=== PATIENT | male | born 1945 | race Caucasian/White ===

== ENCOUNTER 2017-08-20 10:33 | Inpatient (IN) ==
--- OUTSIDE RECORDS SUMMARY | 2017-08-20 10:42 | External Medical Summary | Referral Summary ---
:1945 Author Organization [facility] Address [address] [place] [address] [place] [address] Care Team Providers Name Role Phone Yuliet Zhang Primary Care Physician Encounter VC Date(s): 11/01/16 - 11/01/16 [facility] [place] [place] [address] Discharge Diagnosis: LLQ abdominal pain Discharge Diagnosis: Irritable bowel syndrome Discharge Disposition: 01-Home or Self Care Attending Physician: Yuliet Zhang MD Admitting Physician: Yuliet Zhang MD Vital Signs Most recent to oldest [Reference Range]: 1 Temperature Tympanic [36.6-38.1 degC] 36.3 degC *LOW* (11/01/16 9:22 AM) Peripheral Pulse Rate [60-100 bpm] 76 bpm (11/01/16 9:22 AM) Respiratory Rate [14-20 br/min] 16 br/min (11/01/16 9:22 AM) Blood Pressure [90-140/60-90 mmHg] 122/66 mmHg (11/01/16 9:22 AM) Problem List Condition Effective Dates Status Health Status Informant At risk for falls(Confirmed)1 Active Depression(Confirmed) Active Gastroesophageal reflux disease Active (disorder)(Confirmed) GERD (gastroesophageal reflux Active disease)(Confirmed) History of prostate cancer(Confirmed) Active Hypercholesteremia(Confirmed) Active Obesity(Confirmed) Active patient Obstructive sleep apnea(Confirmed) Active Pure hypercholesterolemia Active (disorder)(Confirmed) 1This problem was added by Discern Expert. Allergies, Adverse Reactions, Alerts No Known Medication Allergies Medications aspirin 81 mg, Oral, Daily, 0 Refill(s) Start Date: 01/24/16 Status: Orderedfamotidine 20 mg oral tablet See Instructions, TAKE 1 TABLET TWICE DAILY, # 180 tabs, 2 Refill(s), eRx: [facility] Start Date: 06/29/16 Status: OrderedFlonase 50 mcg/inh nasal spray 1 sprays, Nasal, BID, as needed for allergy symptoms, 0 Refill(s) Start Date: 01/27/16 Status: Orderedmultivitamin Oral, Daily, 0 Refill(s) Start Date: 01/24/16 Status: Orderedsimvastatin 20 mg oral tablet 10 mg, Oral, Bedtime (once a day), [employer] [phone], # 90 tabs, 1 Refill(s) , Pharmacy: [facility] #[id number], 10 mg Oral Bedtime (once a day),Instr: [employer] [phone] Start Date: 02/23/16 Status: Ordered Immunizations Given and Recorded Vaccine Date Status Refusal Reason pneumococcal 23-polyvalent vaccine 11/22/15 Given pneumococcal 13-valent conjugate vaccine 12/21/14 Given tetanus/diphth/pertuss (Tdap) adult/adol 12/21/14 Given influenza virus vaccine, inactivated 11/24/14 Recorded Procedures Procedure Date Related Diagnosis Body Site Radical prostatectomy1 01/2010 Colonoscopy2 2007 Release of trigger finger3 1Done for prostate cancer. Dr. Chakrabortyh2No polyps and he did diverticuli present. it was done [id number] it was 2011 Social History Social History Type Response Smoking Status Former smoker entered on: 01/24/16 Assessment and Plan Extracted from: Title: Office Visit Note Author: Yulite Zhang MD Date: 11/01/16 1.LLQ abdominal pain I think this was more likely irritable bowel. I encouraged him to continue to keep his fiber intake up. MiraLAX as needed. He's due for colonoscopy next year. If his pain worsens or if she starts running feverhe will let us now. 2.Irritable bowel syndrome Plan as listed above. Increase fluid intake is encouraged as well.
--- OUTSIDE RECORDS SUMMARY | 2017-08-20 10:42 | External Medical Summary | Referral Summary ---
:1945 Author Organization [facility], [facility] Address [address] [place] [address] [place] [address] Care Team Providers Name Role Phone Shahriar Zhang Primary Care Physician Encounter VC Date(s): 07/26/16 - 07/26/16 [facility] [place] [place] [phone] [place] Discharge Diagnosis: Abrasion of right knee Discharge Disposition: 01-Home or Self Care Attending Physician: Shahriar Zhang MD Admitting Physician: Shahriar Zhang MD Vital Signs Most recent to oldest [Reference Range]: 1 Temperature Tympanic [36.6-38.1 degC] 36.6 degC (07/26/16 11:08 AM) Peripheral Pulse Rate [60-100 bpm] 76 bpm (07/26/16 11:08 AM) Blood Pressure [90-140/60-90 mmHg] 122/64 mmHg (07/26/16 11:08 AM) Problem List Condition Effective Dates Status [...] DAILY, # 180 tabs, 2 Refill(s), eRx: [facility] Start Date: 06/29/16 Status: OrderedFlonase 50 mcg/inh nasal spray 1 sprays, Nasal, BID, as needed for allergy symptoms, 0 Refill(s) Start Date: 01/27/16 Status: Orderedmultivitamin Oral, Daily, 0 Refill(s) Start Date: 01/24/16 Status: Orderedsimvastatin 20 mg oral tablet 10 mg, Oral, Bedtime (once a day), [employer] [phone], # 90 tabs, 1 Refill(s) , Pharmacy: [facility] #[id number], 10 mg Oral Bedtime (once a day),Instr: [employer] [phone] Start Date: 02/23/16 Status: Ordered Results No data available for this section Immunizations Given and Recorded Vaccine Date Status Refusal Reason tetanus/diphth/pertuss (Tdap) adult/adol 12/21/14 Given influenza virus vaccine, inactivated 11/24/14 Recorded pneumococcal 13-valent conjugate vaccine 12/21/14 Given pneumococcal 23-polyvalent vaccine 11/22/15 Given Procedures Procedure Date Related Diagnosis Body Site Radical prostatectomy1 01/2010 Colonoscopy2 2007 Release of trigger finger3 1Done for prostate cancer. Dr. Chakrabortyh2No polyps and he did diverticuli present. it was done [id number] it was 2011 Social History Social History Type Response Smoking Status Former smoker Assessment and Plan Extracted from: Title: Office Visit Note Author: Shahriar Zhang MD Date: 07/26/16 Assessment/Plan 1.Abrasion of right knee Reassurance at this point. I think the swelling is just due to the tissue trauma. There is no signs of infection that I could appreciate. I encouraged him to continue to care for it in the wa y he has with some Neosporin and sterile dressings. He may leave it open occasionally. If he has ongoing problems or further concernsor if he notices increased rednesswarmthor pain
--- OUTSIDE RECORDS SUMMARY | 2017-08-20 10:42 | External Medical Summary | Referral Summary ---
:1945 Author Organization [facility] Address [address] [place] [address] Care Team Providers Name Role Phone Shahriar Zhang Primary Care Physician Encounter VC Date(s): 07/30/17 - 07/31/17 [facility] [address] [place] [address]- [place] Discharge Disposition: 01-Home or Self Care Attending Physician: León Marshall MD Admitting Physician: León Marshall MD Vital Signs Most recent to oldest [Reference Range]: 1 Temperature Oral [35.8-37.3 degC] 36.6 degC (07/31/17 12:30 AM) Temperature Skin [36-37 degC] 36.4 degC (07/31/17 12:01 AM) Peripheral Pulse Rate [60-100 bpm] 90 bpm (07/31/17 1:15 AM) Heart Rate Monitored [60-100 bpm] 73 bpm (07/31/17 12:15 AM) Respiratory Rate [14-20 br/min] 16 br/min (07/31/17 1:15 AM) Blood Pressure [90-140/60-90 mmHg] 117/71 mmHg (07/31/17 1:15 AM) Mean Arterial Pressure, Cuff 83 mmHg (07/31/17 12:15 AM) SpO2 96 % (07/31/17 1:15 AM) Problem List Condition Effective Dates Status Health Status Informant Acute pain(Confirmed) Active At risk for falls(Confirmed)1 Active Depression(Confirmed) Active Gastroesophageal reflux disease Active (disorder)(Confirmed) GERD (gastroesophageal reflux Active disease)(Confirmed) History of prostate cancer(Confirmed) Active Hypercholesteremia(Confirmed) Active Obesity(Confirmed) Active patient Obstructive sleep apnea(Confirmed) Active Pure hypercholesterolemia Active (disorder)(Confirmed) 1This problem was added by Discern Expert. Allergies, Adverse Reactions, Alerts No Known Medication Allergies Medications aspirin 81 mg, Oral, Daily, 0 Refill(s) Start Date: 01/24/16 Status: OrderedCommunication not a verified med list, pharmacy to follow up, 0 Refill(s) Start Date: 07/30/17 Status: Orderedfamotidine 20 mg oral tablet See Instructions, TAKE 1 TABLET TWICE DAILY, # 180 tabs, 2 Refill(s), eRx: [facility] Start Date: 06/29/16 Status: OrderedFlonase 50 mcg/inh nasal spray 1 sprays, Nasal, BID, as needed for allergy symptoms, 0 Refill(s) Start Date: 01/27/16 Status: Orderedmultivitamin Oral, Daily, 0 Refill(s) Start Date: 01/24/16 Status: Orderedsimvastatin 20 mg oral tablet 10 mg, Oral, Bedtime (once a day), [facility] [phone], # 90 tabs, 1 Refill(s) , Pharmacy: [facility] #[id number], 10 mg Oral Bedtime (once a day),Instr: [employer] [phone] Start Date: 02/23/16 Status: Ordered Results Chemistry Most recent to oldest [Reference Range]: 1 Sodium Venous [136-144 mEq/L] 137 mEq/L (07/30/17 9:30 PM) Potassium Venous [3.6-5.1 mEq/L] 5.1 mEq/L 1 (07/30/17 9:30 PM) Calcium Ionized Venous [1.19-1.41 mmol/L] 1.04 mmol/L *LOW* (07/30/17 9:30 PM) Total CO2 Venous [25-29 mEq/L] 20 mEq/L *LOW* (07/30/17 9:30 PM) HGB Venous NPT [14.0-18.0 gm/dL] 16.7 gm/dL (07/30/17 9:30 PM) HCT Venous [42.0-52.0 %] 49.0 % (07/30/17 9:30 PM) Glucose Venous [70-100 mg/dL] 227 mg/dL *HI* (07/30/17 9:30 PM) BUN Venous [4-20] 24 *HI* (07/30/17 9:30 PM) Creatinine Venous [0.7-1.2 mg/dL] 0.9 mg/dL (07/30/17 9:30 PM) Venous CL [99-109 mEq/L] 105 mEq/L (07/30/17 9:30 PM) Anion Gap, Adam [3-20 mEq/L] 12 mEq/L (07/30/17 9:30 PM) 1Result Comment: This test was performed on a whole blood specimen. The presence or absence of hemolysis cannot be assessed. Hemolysis can falsely elevate potassium levels. Normals are for venous specimens only.Urinalysis Most recent to oldest [Reference Range]: 1 UA Color - 1 (07/30/17 9:22 PM) UA Appear Turbid *ABN* (07/30/17 9:22 PM) UA pH [5.0-8.0] 6.0 (07/30/17 9:22 PM) UA Leuk Est [Negative] Negative (07/30/17 9:22 PM) UA Nitrite [Negative] Negative (07/30/17 9:22 PM) UA Protein [Negative] Pos 2+ *ABN* (07/30/17 9:22 PM) UA Glucose [Negative] Pos 3+ *ABN* (07/30/17 9:22 PM) UA Ketones [Negative] Pos 1+ *ABN* (07/30/17 9:22 PM) UA Urobilinogen [<1.0] Negative (07/30/17 9:22 PM) UA Bili [Negative] Negative (07/30/17 9:22 PM) UA Blood [Negative] Pos 3+ *ABN* (07/30/17 9:22 PM) UA Spec Grav [1.003-1.030] 1.020 (07/30/17 9:22 PM) Type Clean Catch (07/30/17 9:22 PM) UA WBC [0-4] 2-5 (07/30/17 9:22 PM) UA RBC [0-2 /HPF] >50 /HPF *ABN* (07/30/17 9:22 PM) Epithelial Cells 0-2 (07/30/17 9:22 PM) UA Bacteria Occasional *ABN* (07/30/17 9:22 PM) UA Mucous Present (07/30/17 9:22 PM) 1Result Comment: Braxton Immunizations Given and Recorded Vaccine Date Status Refusal Reason influenza virus vaccine, inactivated1 11/16/16 Recorded influenza virus vaccine, inactivated 11/24/14 Recorded pneumococcal 23-polyvalent vaccine 11/22/15 Given pneumococcal 13-valent conjugate vaccine 12/21/14 Given tetanus/diphth/pertuss (Tdap) adult/adol 12/21/14 Given 1Result Comment: [11/21/2016] fluzone [facility] Procedures Procedure Date Related Diagnosis Body Site Status Cystoscopy Direct Visual Internal 07/30/17 Completed Urethrotomy1 Radical prostatectomy2 01/2010 Completed Colonoscopy3 2007 Completed Release of trigger finger4 Completed 1auto-populated from documented surgical [id number] for prostate cancer. Dr. Chakrabortyh3No polyps and he did diverticuli present. it was done [id number] it was 2011 Social History Social History Type Response Smoking Status Former smoker entered on: 01/24/16
--- OUTSIDE RECORDS SUMMARY | 2017-08-20 10:42 | External Medical Summary | Referral Summary ---
:1945 Author Organization [facility] [place] [place] [address] Care Team Providers Name Role Phone Yuliet Zhang Primary Care Physician Encounter VC Date(s): 04/28/16 - 04/28/16 [facility] [place] [place] [phone] [place] Discharge Diagnosis: Heart palpitations Discharge Diagnosis: Anxiety Discharge Diagnosis: Hypercholesteremia Discharge Diagnosis: Low back strain Discharge Disposition: 01-Home or Self Care Attending Physician: Yuliet Zhang MD Admitting Physician: Yuliet Zhang MD Vital Signs Most recent to oldest [Reference Range]: 1 Temperature Tympanic [36.6-38.1 degC] 36.4 degC *LOW* (04/28/16 8:03 AM) Peripheral Pulse Rate [60-100 bpm] 67 bpm (04/28/16 8:03 AM) Blood Pressure [90-140/60-90 mmHg] 124/70 mmHg (04/28/16 8:03 AM) SpO2 99 % (04/28/16 8:03 AM) Problem List Condition Effective Dates Status [...] 01/24/16 Status: Orderedfamotidine 20 mg oral tablet 20 mg, Oral, BID, fax to [employer] [phone], # 180 tabs, 1 Refill(s), Pharmacy : [facility] #[id number], 20 mg Oral BID,x90 days,Instr:fax to [facility] [phone] Start Date: 02/23/16 Stop Date: 08/21/16 Status: OrderedFlonase 50 mcg/inh nasal spray 1 sprays, Nasal, BID, as needed for allergy symptoms, 0 Refill(s) Start Date: 01/27/16 Status: Orderedmultivitamin Oral, Daily, 0 Refill(s) Start Date: 01/24/16 Status: Orderedsimvastatin 20 mg oral tablet 10 mg, Oral, Bedtime (once a day), [facility] [phone], # 90 tabs, 1 Refill(s) , Pharmacy: [facility] #[id number], 10 mg Oral Bedtime (once a day),Instr: [facility] [phone] Start Date: 02/23/16 Status: Ordered Results No [...] he did diverticuli present. it was done [id number] it was 2011 Social History Social History Type Response Smoking Status Former smoker Assessment and Plan Extracted from: Title: Office Visit Note Author: Yuliet Zhang MD Date: 04/28/16 Assessment/Plan 1.Heart palpitations Think he is likely having somePVCs that he is feeling better creating some anxiety and causing his blood pressure torun higher. I think it's reasonable to consider having cardiology consultat ion perhaps a treadmillstresstest doneto give him some reassurance that there is no other underlyingdifficulties and to monitor his rhythm. We did discuss using beta blockers to suppress PVCs for the time being we will notuse medicationat this time. 2.Anxiety We talked about how the PVCs can provoke anxiety and perhaps sometimes anxiety can cause the PVCs to be more prominent. I've recommendedcardiology evaluation and we can discuss whether we would want to consider treating the anxietyas well. 3.Hypercholesteremia Chronic and stable and under good control no change in current treatment. 4.Low back strain This seems to be improvingof a change in treatment he may continue to use ibuprofen and see the chiropractor. I encouraged him to stay active. If the symptoms worsenor he is having further problems he'll let us know.
[2017-08-20 10:46] VITALS: BMI 26.8
[2017-08-20] MEDS ORDERED: PROPOFOL 20 ML ONE (10:52)
[2017-08-20] MEDS ORDERED: ROCURONIUM 50 MG/5 ML INJECTION IVP ONE (10:52)
[2017-08-20] MEDS: LR 1,000 ML IV SCH ×4 (11:20→17:16)
--- NOTE | 2017-08-20 12:01 | Anesthesia Preoperative Report ---
Anesthesia Preoperative Record - Date and Time Date: 08/20/17 Preoperative Diagnosis: Rt Hemicolectomy Proposed Procedure: right hemicolectomy NPO Since Date: 08/20/17 NPO Since Time: 05:00 Allergies/Adverse Reactions: Allergies Allergy/AdvReac Type Severity Reaction Status Date / Time No Known Allergies Allergy Verified 08/20/17 10:54 - Vital Signs Vital Signs: Temperature 98.0 F 08/20/17 10:45 Pulse Rate 77 08/20/17 11:24 Respiratory Rate 16 08/20/17 10:45 Blood Pressure 135/70 08/20/17 10:45 Pulse Oximetry 97 08/20/17 10:45 Height and Weight: Height 1.79 m Weight 86.1 kg Body Mass Index 26.8 - Medications Inpatient Medications: Current Medications Heparin Sodium (Porcine) (Heparin Sq) 5,000 units SQ O ONE Stop: 08/20/17 14:38 Last Admin: 08/20/17 11:17 Dose: 5,000 units Ertapenem 1 g/ Sodium Chloride 100 mls @ 200 mls/hr IV PREOP ONE Stop: 08/20/17 15:06 Lactated Ringer's (Lactated Ringers) 1,000 mls @ 50 mls/hr IV .Q20H DORIE Last Admin: 08/20/17 11:20 Dose: 50 mls/hr Lidocaine HCl (Xylocaine-Mpf 1% Vial) 2 mg ID O ONE Stop: 08/20/17 14:38 Last Admin: 08/20/17 11:23 Dose: Not Given Sodium Chloride (Iv Flush) 10 ml IV PRN PRN PRN Reason: Flushing Home Medications: Home Medications Medication Instructions Recorded Confirmed Type Ibuprofen [Motrin] 600 mg PO Q6H PRN #60 tab 03/01/17 08/20/17 Rx Aspirin [Aspirin EC] 81 mg PO DAILY 06/27/17 08/17/17 History Famotidine [Pepcid] 1 tab PO BID 06/27/17 08/20/17 History Multivitamin [Multivitamins] 1 tab PO DAILY 06/27/17 08/20/17 History Simvastatin [Zocor] 10 mg PO HS 06/27/17 08/20/17 History erythromycin 250 mg See Label Instructions PO TID #12 08/06/17 08/20/17 Rx capsule,delayed release cap Neomycin Sulfate 1,000 mg PO TID 08/20/17 08/20/17 History Is Patient on Beta Mackenzie?: No - Medical History Respiratory: Reports: Sleep Apnea DENIES: Asthma, Bronchitis, Chronic Obstructive Pulmonary Disease (COPD), Dyspnea, Orthopnea, Pulmonary Embolism, Pneumonia, Upper Respiratory Infection, Pulmonary Edema, Tuberculosis, Other Cardiovascular: Reports: Other (palpitations) DENIES: Abnormal EKG, Angina, Arrhythmia, Congestive Heart Failure, Coronary Artery Disease, Heart Murmur, Hypertension, Hypotension, Myocardial Infarction, Rheumatic Fever, Valvular Heart Disease Gastrointestional: Reports: Gastroesophageal Reflux Disease (well controlled), Hiatal Hernia, Other (diverticulitis, tubulovillous ademoma) DENIES: Obstructive Bowel, Hepatitis, Cirrhosis, Gastrointestinal Bleeding, Ulcer, Morbid Obesity Neuro/Musculoskeletal: Reports: Depression Denies: Back Problems, Cerebrovascular Accident, Headaches, Loss of Consciousness, Muscle Weakness, Neuromuscular Disorder, Paralysis, Paresthesia, Syncope, Seizures, Other Renal/Endocrine: DENIES: Diabetes Mellitus Type 1, Diabetes Mellitus Type 2, Renal Failure, Dialysis, Thyroid Disease, Weight Loss, Weight Gain, Other Other History: Reports: Cancer (prostate) DENIES: Anesthesia Reactions - Surgical History HEENT Surgeries: Reports: Eye Surgery (retina repair; TORN RETINA), Tonsillectomy Respiratory Surgery/Treatments: Reports: CPAP Use GI Surgery/Treatments: Reports: Hernia Repair (inguinal-left), Colonoscopy Surgery/Treatment: REPORT: Prostatectomy (2009), Other (HAS A "FALSE PASSAGE IN URETHRA; HAD UROLOGIST PLACE CATHETER 07/30/17) DENIES: Dialysis Musculoskeletal Surgery/Tx: Reports: Other (trigger finger release-left) Hx Family Anesthesia Reaction: No - Social History Smoking Status: Former smoker Hx Chewing Tobacco Use: No Second Hand Exposure: No Substance Use Type: does not use Alcohol Intake: current Alcohol Intake Frequency: a few times a week - Pertinent Findings Laboratory: CBC and BMP 08/20/17 11:01 08/20/17 11:01 BMP 08/20/17 11:01 Sodium 147 H Potassium 3.9 Chloride 110 H Carbon Dioxide 22 BUN 16.0 Creatinine 1.0 Glucose 91 Calcium 9.3 Liver Function 08/20/17 Range/Units 11:01 Total Bilirubin 1.40 H (0.20-1.30) MG/DL AST 30 (17-59) U/L ALT 27 (1-50) U/L Alkaline Phosphatase 80 (38-126) U/L Albumin 4.7 (3.5-5.0) g/dL EKG: Sinus Rhythm - Physical Exam Respiratory Exam: Present: lungs clear Cardiovascular Exam: Present: regular rate and rhythm, no murmur - Airway Assessment Mallampati Score: II TMD: 3 Fingerbreadths Neck Extension: good Teeth: chipped teeth/crowns Overall Assessment: no airway concerns - ASA ASA Score: 3 - Plan Anesthesia: General Inhalation Gases - Discussion Discussion: Discussed risks/options/alternatives of anesthesia and questions answered. Patient consents. Nursing pain assessment noted. Present for Discussion: family member Attestation Statement: Prior to the delivery of any anesthetic medication, I examined the patient, developed the plan, obtained the patient's consent and discussed the risk and benefits of the procedure with the patient/guardian. - Additional Information Seen by Anesthesia: Yes
[2017-08-20] MEDS ORDERED: FentaNYL 250 MCG/5 ML INJECTION ONE ×2 (12:13→14:45)
[2017-08-20] MEDS ORDERED: LACRI-LUBE EYE OINT 3.5gm ONE (12:15)
[2017-08-20] MEDS ORDERED: SALINE FLUSH 10ml SYRINGE ONE ×3 (13:07→17:10)
[2017-08-20] MEDS ORDERED: VECURONIUM 10 MG/10 ML VIAL IV ONE ×2 (13:07→14:40)
[2017-08-20] MEDS ORDERED: GLYCOPYRROLATE 0.4 MG/2 ML INJECTION ONE (13:12)
[2017-08-20] MEDS ORDERED: BUPIVACAINE 0.25%/EPI 1:200,000 30ml SDV ID ONE (13:30)
[2017-08-20] MEDS ORDERED: IOHEXOL 300mg/ml 50ml INJECTION IV ONE (14:00)
[2017-08-20] MEDS ORDERED: SALINE FLUSH 10ml SYRINGE IV PRN (14:37)
[2017-08-20] MEDS ORDERED: ERTAPENEM 1 G in NS 100 ML IV ONE (14:37)
[2017-08-20] MEDS ORDERED: LIDOCAINE 1% (10mg/ml) 2mL INJ PF SDV ID ONE (14:37)
[2017-08-20] MEDS ORDERED: HEPARIN SUB-Q 5,000units/0.5ml INJECTION SQ ONE (14:37)
[2017-08-20] MEDS ORDERED: INDOCYANINE GREEN 25mg INJECTION IVP ONE (17:03)
[2017-08-20] MEDS ORDERED: SUGAMMADEX 200mg/2ml INJECTION IVP ONE (18:16)
--- NOTE | 2017-08-20 18:24 | General Surgery Procedure Note ---
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
[2017-08-20] MEDS: HYDROMORPHONE 2 MG/ML INJECTION IVP PRN ×2 (18:44→19:00)
[2017-08-20] MEDS ORDERED: MORPHINE SULFATE 4mg INJECTION IVP PRN (19:10)
[2017-08-20] MEDS: MORPHINE SULFATE 10mg/ml VIAL IVP PRN ×2 (19:12→19:22)
[2017-08-20] MEDS ORDERED: ONDANSETRON ODT 4 MG TABLET PO PRN (19:31)
[2017-08-20] MEDS ORDERED: MORPHINE PCA 30 MG/30 ML SYRINGE IV PRN (19:31)
[2017-08-20] MEDS ORDERED: Oxycodone/Acetaminophen 5/325 1 TAB PO PRN (19:31)
[2017-08-20] MEDS ORDERED: METOCLOPRAMIDE 10mg/2ml INJECTION IVP PRN (19:31)
[2017-08-20] MEDS ORDERED: NS 1,000 ML IV SCH (19:31)
[2017-08-20] MEDS ORDERED: HYDROMORPHONE 2 MG/ML INJECTION IVP PRN (19:31)
[2017-08-20] MEDS ORDERED: ONDANSETRON 4 MG/2 ML INJECTION IVP PRN (19:31)
[2017-08-20] MEDS: KETOROLAC 15 MG/ML INJECTION IVP PRN (19:52)
--- NOTE | 2017-08-20 20:48 | Anesthesia Postoperative Note ---
- Date and Time Date: 08/20/17 Time: 20:48 - Status Patient Participated in Evaluation: Patient Participated in Person Vital Signs: Temperature 95.8 F L 08/20/17 20:04 Pulse Rate 85 08/20/17 20:04 Respiratory Rate 18 08/20/17 20:36 Blood Pressure 142/67 H 08/20/17 19:45 Pulse Oximetry 96 08/20/17 20:04 Respiratory Function: Airway Patent, Regular Respirations Cardiovascular Function: Regular Pulse EKG: Sinus Rhythm Mental Status: Alert and Oriented Pain Intensity: 7 Hydration: IV Infusing Complications During Recover: None Apparent - Follow-Up Instructions Instructions: Per Surgeon
[2017-08-20] MEDS: FAMOTIDINE PB 20 MG/50 ML BAG IV SCH (20:56)
[2017-08-20] MEDS: D5-1/2NS with KCL 20mEq 1,000 ML IV SCH (23:41)
[2017-08-21] MEDS: D5NS 1,000 ML IV SCH ×2 (08:51→17:23)
--- NOTE | 2017-08-21 09:08 | Operative Note ---
DATE OF OPERATION 08/20/2017 PREOPERATIVE DIAGNOSIS 1. History of bladder neck contracture following prostatectomy. 2. Placement of ureteral stent for right robotic colectomy. POSTOPERATIVE DIAGNOSIS 1. History of bladder neck contracture following prostatectomy. 2. Placement of ureteral stent for right robotic colectomy. OPERATION PERFORMED 1. Right ureteral stent placement. 2. Placement of Davis catheter over wire. SURGEON Giovanni Christensen MD FINDINGS Bladder neck contracture. INDICATIONS FOR THE PROCEDURE This is a 72-year-old male who is scheduled to undergo a robotic colectomy with Dr. Thompson a couple of weeks ago. The surgery was canceled because the Davis catheter could not be placed in his bladder. He was transferred to [facility] and underwent incision of the bladder neck contracture and Davis placement by Dr. Marshall. Patient is rescheduled for right robotic colectomy and I was asked by Dr. Thompson to place the Davis before the surgery and place a right ureteral stent to help identify the ureter. DESCRIPTION OF THE PROCEDURE Patient was identified in the preoperative holding area. The procedure was explained to him and he agreed to proceed. He was taken back to the operating room where he was placed supine on the operating room table. General anesthesia was induced. He was then placed in the dorsal lithotomy position. His genitalia were prepped and draped in the usual fashion. At this time, a formal time-out was done, all the persons in the room were in agreement. I began the procedure by introducing a rigid cystoscope inside the bladder. The urethra was open. The patient had a bladder neck contracture that appeared to be incised recently. It was wide enough to accommodate my cystoscope. His two ureteral orifices were orthotopic in position. The bladder was slightly trabeculated. I placed the right lighted ureteral stent in the right ureteral orifice and advanced it to the 2 level rosalind without problems. This was done over a sensor wire. I then removed the cystoscope from the bladder and placed a wire in the bladder. A 14-English catheter was then placed over the wire and advanced to the level of the bladder. The balloon was inflated with 10 mL. The Davis catheter and the right ureteral stent were then tied together using silk. I then placed the electrode inside the stent to provide lighting during the procedure. This concluded the urology part of the procedure. The care of the patient was handed back to Dr. Thompson. [facility]
[2017-08-21] MEDS: ENOXAPARIN 40 MG/0.4 ML INJECTION SQ SCH (09:49)
[2017-08-21] MEDS: FAMOTIDINE PB 20 MG/50 ML BAG IV SCH ×2 (09:49→20:33)
--- NOTE | 2017-08-21 11:06 | Operative Note ---
DATE OF SERVICE 08/20/2017 SURGEON Christian Thompson MD EMBLEM MAKER Francisco Hsu APRN PREOPERATIVE DIAGNOSIS Large tubulovillous adenoma involving ascending colon, unable to remove in its entirety endoscopically. POSTOPERATIVE DIAGNOSIS Large tubulovillous adenoma involving ascending colon, unable to remove in its entirety endoscopically. PROCEDURE Attempted robotic assisted laparoscopic right hemicolectomy with conversion to open right hemicolectomy. ANESTHESIA General endotracheal EBL & FLUIDS Please see chart. BRIEF HISTORY/INDICATIONS Mr. Hollingsworth is a 72-year-old gentleman who recently underwent a colonoscopy and was found to have a fairly large sessile mass/polyp involving the mid ascending colon region. This polyp was perhaps 3-4 cm in diameter and involved the majority of the circumference of the colon. Polyp was not amenable to endoscopic removal and it was therefore biopsied. Biopsy did return revealing tubulovillous adenoma with associated dysplasia. As a result of the above indications, it was recommended that he undergo surgical resection of this larger adenomatous colonic polyp. Patient presents today to undergo robotic assisted laparoscopic right hemicolectomy. For completeness please refer to notes included in the patient's chart. FINDINGS Upon laparoscopy, the liver edge smooth and without nodularities. 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 This did result in increased difficulty of the procedure. Small bowel, omentum, and colon which was visualized were without visible abnormalities. In addition to the adhesions from his open prostatectomy, the patient was found to have somewhat of an abnormal anatomy in the fact that his hepatic flexure was densely adherent along the lower edge of the liver. As a result of these increased adhesions and somewhat abnormal hepatic flexure, procedure was converted to an open procedure. A standard open right hemicolectomy was able to be completed without incident. DESCRIPTION OF PROCEDURE After informed consent was obtained, patient was brought to the operative suite , placed on the table in a supine fashion. The abdomen was then prepped and draped in sterile fashion. Formal time-out was then completed. 0.25% Marcaine with epinephrine was injected just beneath the left subcostal margin. A 4-5 mm incision was then made through the area of analgesia. Veress needle was introduced through the small incision into the peritoneal cavity. Pneumoperitoneum was established to a patient pressure of 15 mmHg utilizing carbon dioxide. Next a 12 mm camera port was placed to the left of the umbilicus and slightly caudad. First 0.25% Marcaine with epinephrine was injected about 4 cm to the left of the umbilicus and slightly caudad. A 2 cm incision was then made overlying the area of analgesia. A 12 mm port was then advanced through the subcutaneous tissues and through the underlying fascia and peritoneum under direct visualization by placing the laparoscope within the port as it was being advanced. One could see the port as it entered into the peritoneal cavity. Trocar was then removed and the balloon was then insufflated. Laparoscope was then reinserted. One could then see the Veress needle coursing into the left upper quadrant. Veress needle was removed under direct visualization. Next a da Karla stapler port was placed within the left upper quadrant out laterally as well as an additional 8 mm da Karla port within the epigastric region and in conjunction with a second 8 mm da Karla port within the suprapubic region. Each da Karla port was preinjected with 0.25% Marcaine with epinephrine and placed under direct visualization. A 5 mm assist port was then also placed within the left lower quadrant of the anterior abdominal wall under direct visualization. The patient was then placed in Trendelenburg and rotated towards his left. Small bowel was then placed within the left upper quadrant utilizing a wavy grasper. One could then see the right mesocolon. There were some abnormal adhesions between the omentum, right colon as well as between the transverse colon, hepatic flexure and the ascending colon. The right mesocolon was also adhered upon itself. Terminal ileum was also found to be somewhat adhered along the right lateral pelvic wall. Preoperative ureteral stent was placed and one could see the ureter fluoresce with the stent up to the iliac vessels. The stent did not get past this location, however. Robot was then docked overlying the patient's right shoulder at a 45 degree angle. Robotic arm #3 was attached to the trocar within the epigastric region. Robotic arm #1 was attached to the stapler and lastly robotic arm #2 was attached to the da Karla port within the suprapubic region. Graptor was placed in robotic arm #3. Scissors were placed in robotic arm #1. Fenestrated bipolar grasper was placed in robotic arm #2. I then proceeded to the console. A fair amount of time was spent performing adhesiolysis initially. There was some omentum that was densely adhered along the right colon as well as upon a portion of the lower midline incision. Omentum was dissected away. The colon itself had also adhered to itself between the transverse colon and the ascending colon. Hepatic flexure was also somewhat adhered upon itself as well. Eventually the adhesions were able to be taken down and the right colon was then grasped with the Graptor and retracted anteriorly and laterally. One could then see the right ileocolic vessels as they were "tented upward". Just caudad to the ileocolic vessels near its origin , the mesocolon was began to be incised with hook cautery. Dissection was carried down into the retroperitoneal plane. I then elected to go ahead and mobilize the terminal ileum under direct visualization along the right lateral pelvic wall. This was done sharply with scissors. One could then enter the retroperitoneal space behind the terminal ileum. The mesentery to the terminal ileum was then divided utilizing Harmonic scalpel up to the terminal ileum about 5 cm proximal to the ileocecal valve region. Retroperitoneal space was then carefully and bluntly dissected posteriorly as the right mesocolon was retracted anteriorly. Dissection was carried out laterally to the white line of Toldt. Dissection was then carried up posteriorly up towards the hepatic flexure region. Next, attention was then focused back to the ileocolic vessels. Ileocolic vessels were dissected out just beyond their origin carefully and meticulously. Hem-o-Lorraine clips were then placed upon the right ileocolic artery and vein proximally as well as distally. Additional Hem-o-lorraine clip was then just placed proximally. The right ileocolic artery and vein were then divided between the two Hem-o-lorraine clips near their origin. Dissection was then began up towards the anatomic location of the duodenum along the retroperitoneal space once the vessels had been divided. I had a difficult time visualizing the duodenum as I typically will see just beyond the ileocolic vessels once they are divided. I then elected to try to mobilize the hepatic flexure. A point along the mid transverse colon was then ascertained. Gastrocolic ligament was then divided at this location and continued to be divided out laterally towards the hepatic flexure. There was an unusual amount of adhesions at this location as well. One could then see that the hepatic flexure was adhered along the lower edge of the liver. Additional moderate amount of time was spent trying to mobilize the hepatic flexure. This was fraught with some difficulty as a result of the abnormal anatomy and adhesions. At this time, the case seemed to somewhat fail to progresses and I therefore elected to go ahead and proceed with conversion to an open procedure. Robot was then undocked. Midline incision was then made from just about the level of the umbilicus up into the epigastric region. Underlying subcutaneous tissues and fascia was then opened to the extent of the incision. Codman retractor was then placed to provide adequate exposure. Attention was first focused to the right upper quadrant. One could still see some additional gastrocolic ligament that still persisted between the stomach and the transverse colon. This remaining gastrocolic ligament was then divided sequentially between right angle clamps and ligated with 0 Vicryl ties. One could then trace the stomach up to the pyloric region and the duodenal C-loop. Duodenum was now clearly visualized. The hepatic flexure, however, was adhered overlying the duodenum as well as upon the lower edge of the liver. The hepatic flexure was then carefully and meticulously divided with electrocautery and utilizing a right angle clamp to provide appropriate tissue planes. Now the hepatic flexure could be brought forth up anteriorly and caudally. The duodenum was clearly visualized and dissected away from the hepatic flexure as it was being mobilized as discussed above. Duodenum was preserved in its entirety. At no point in time was electrocautery performed adjacent to the duodenum. The mesentery was somewhat foreshortened as a result of adhesions at this location. The mesentery to the hepatic flexure, however, was sequentially divided between right angle clamps and ligated with 0 Vicryl ties. Dissection was carried out to just beyond the hepatic flexure. Before undocking the robot, I did elect to go ahead and divide the terminal ileum with the da Karla stapler. Additionally prior to undocking, I had also divided the white line of Toldt along the right pericolic gutter. At this point in time, the terminal ileum, right colon and hepatic flexure had been completely mobilized and its mesentery divided. EDDY-75 stapler was then placed across the transverse colon just beyond the hepatic flexure and fired. The terminal ileum, right colon and initial hepatic flexure was then passed off the table as a surgical specimen. The specimen was then opened on the back table and one could then see that there was indeed a very large sessile adenoma involving the hepatic flexure region, more so than the mid ascending colon as noted endoscopically. It did appear that this polyp extended at one location fairly close to the staple line. Therefore I elected to go ahead and proceed with some additional resection of the proximal transverse colon just beyond hepatic flexure. Mesentery to this segment of bowel was sequentially divided between right angle clamps and ligated once again with 0 Vicryl and 3-0 Vicryl ties. EDDY-75 stapler was then placed upon the transverse colon about 4 cm beyond the initial staple line and fired. This segment of additional transverse colon was then passed off the table as a surgical specimen. A marking suture was placed along the new proximal border. This portion of bowel was opened and there was no evidence for residual polyp at this location indicative of clear margins. Attention was then direct towards performing the anastomosis. The antimesenteric portion of the terminal ileum was then aligned along the antimesenteric portion of the transverse colon. This was done by placing a few single interrupted sutures of 3-0 Vicryl. The da Karla camera was not passed off the table as a surgical specimen and I elected to go ahead and check the vascular supply at the staple lines. The patient was given intravenous ICG. The da Karla camera was then set to fluorescence. One could then see that both the small bowel and colon fluoresced quite well up to the staple lines and there was no evidence for vascular compromise. Next, enterotomy was then performed along the antimesenteric borders of the terminal ileum and transverse colon and EDDY-75 stapler was then placed within the enterotomy and colotomy and aligned along the antimesenteric border and fired. EDDY-75 stapler was then reloaded and placed transversely across the terminal ileum and transverse colon excluding the prior enterotomy and colotomy and fired. This resulted in a completed functional [id number] anastomosis. Palpation revealed the anastomosis to be widely patent. Next I elected to go ahead and reassess the vascular status. The da Karla camera was once again utilized and the new staple line fluoresced quite well indicative of adequate blood supply. The small bowel and colon fluoresced quite well up to the staple line. Palpation was undertaken and one could feel that the anastomosis was widely patent. Additional single interrupted suture was then placed at the apex of the staple line between the transverse colon and terminal ileum. The ends of the transverse staple line were then inverted by placing several Lembert sutures at the end of the transverse staple line. Next I had my patent legal assistant then grasp the transverse colon just beyond the anastomosis. I then advanced small bowel contents towards the anastomosis and through the anastomosis until the anastomosis was fairly taut with small bowel contents. At no point in time could one see any extravasation of succus entericus material through the staple lines. Next the prior areas of dissection were inspected and found to be hemostatic in nature. Attention was then directed towards closure. The fascial opening at the camera port and stapler port site was closed in a [id number] fashion with 0 Vicryl from within the peritoneal cavity. Attention was then directed towards closure. Instrument, sponge, and needle counts were performed and found to be correct. New gowns and gloves and instruments were then obtained and attention then focused towards closure. Fascia was closed in a running fashion with #1 PDS suture. Skin and subcutaneous tissues were then irrigated with Betadine. Skin incisions were then closed with errol. The patient was awakened from his anesthetic and sent back to recovery room once deemed in stable condition. Additionally, it should be noted that Francisco Hsu APRN, was present throughout the entire case and played a pivotal role in providing assistance and exposure during the course of the procedure. ZAK
--- NOTE | 2017-08-21 12:59 | General Surgery Progress Note ---
Subjective Narrative: Post op day #1, right hemicolectomy. Pt seen earlier this morning, in bed, he had not been to the chair yet but is aware that he will be getting up today. Abd pain worst with any kind of activity, minimal to moderate at rest. Denies nausea No flatus of BM. Denies chest pain, SOA, Headache, confusion. - Vital Signs Last Vital Signs Temp 98 F 08/21/17 12:00 Pulse 83 08/21/17 12:00 Resp 30 H 08/21/17 12:00 BP 117/54 08/21/17 12:00 Pulse Ox 93 08/21/17 12:00 - Laboratory Result Diagrams: 08/21/17 04:00 08/21/17 05:00 - Abnormal Exam Abdominal: hypoactive bowel sounds - Normal Exam General: awake, alert, oriented Cardiovascular: regular rate Respiratory: clear bilaterally, no labored breathing Abdominal: soft, appropriately tender (long midling incision plus several trocar sites), incision(s) (dressing not removed today) Psychiatric: normal affect Assessment and Plan (1) S/P right colectomy Current Visit: Yes Status: Acute (2) Tubulovillous adenoma of colon Current Visit: Yes Status: Acute Plan: 08/21/2017 POD #1 Open right hemicolectomy. Alert, oriented. pain controlled with PRINTED CIRCUIT BOARD DRAFTER and Dilaudid for breakthrough. No flatus or BM yet. Urine output is very good and has cleared to clear yellow, bloody initially due to stents. Labs good, see results. Plan on leaving catheter in due to difficulty with catheter placement 3 weeks ago which require cancellation of surgery in July. Hospital Course Summary Disclaimer: The visit summary below is not to be considered part of the above Progress Note.
[2017-08-21] MEDS: KETOROLAC 15 MG/ML INJECTION IVP PRN ×2 (13:15→20:33)
--- NOTE | 2017-08-21 19:37 | Progress Note ---
DATE OF SERVICE 08/21/2017 FINDINGS Mr. Hollingsworth was seen this morning on rounds. He was complaining of incisional discomfort as one would expect on postop day #1. The patient stated that he did not have much pain when he was lying still but had been up in the chair earlier which did result in increased incisional discomfort. PHYSICAL EXAM VITAL SIGNS: Afebrile, normotensive. Please refer to EMR. CHEST: Clear to auscultation bilaterally. HEART: Regular rate and rhythm. Normal S1 and S2 without gallops, murmurs or clicks. ABDOMEN: Palpation of the abdomen reveals it to be soft and essentially nontender along the left lateral and right lateral abdominal wall. The patient did have tenderness along his prior midline incision as one would expect. No evidence for guarding or rebound. LABORATORY/RADIOGRAPHIC EVALUATION Patient had a CBC today and his hemoglobin was 12.7. White count is overall stable at 10,000. BMP obtained and found to be without marked abnormalities. ASSESSMENT 72-year-old gentleman postop day #1 status post open right hemicolectomy secondary to large tubulovillous adenoma involving ascending colon unable to be removed in its entirety endoscopically. Patient currently doing well. PLAN Will continue with current care at this time. Will plan on transferring the patient out to the surgical floor tomorrow. Overall pleased with the patient's progress. ZAK
[2017-08-22] MEDS: D5NS 1,000 ML IV SCH ×4 (01:23→19:10)
[2017-08-22] MEDS: KETOROLAC 15 MG/ML INJECTION IVP PRN ×4 (02:34→21:28)
[2017-08-22] MEDS: ENOXAPARIN 40 MG/0.4 ML INJECTION SQ SCH (08:07)
[2017-08-22] MEDS: FAMOTIDINE PB 20 MG/50 ML BAG IV SCH ×2 (08:08→19:47)
[2017-08-22] MEDS: D5-1/2NS with KCL 20mEq 1,000 ML IV SCH (10:27)
--- NOTE | 2017-08-22 18:22 | Progress Note ---
DATE OF SERVICE 08/22/2017 FINDINGS Mr. Hollingsworth was seen this morning on rounds. He states he was feeling significantly better in comparison to yesterday. He was having less abdominal discomfort. PHYSICAL EXAM VITAL SIGNS: Afebrile, normotensive. Please refer to EMR. CHEST: Clear to auscultation bilaterally. HEART: Regular rate and rhythm. Normal S1 and S2 without gallops, murmurs or clicks. ABDOMEN: Soft. Minimal incisional tenderness present. Dressing was clean, dry and intact overlying his midline incision. LABORATORY/RADIOGRAPHIC EVALUATION Patient had a CBC today and his white count is 8.2. Hemoglobin is overall stable at 11.8. BMP obtained and found to be without marked abnormalities. ASSESSMENT 73-year-old gentleman status post right hemicolectomy secondary to large tubulovillous adenoma involving ascending colon unable to be removed in its entirety endoscopically. Patient doing well. PLAN Transfer to surgical floor. BERNA Davis. Advance to full liquids. Continue to follow closely. ZAK
[2017-08-23] MEDS: D5NS 1,000 ML IV SCH ×3 (00:29→12:20)
[2017-08-23] MEDS ORDERED: NS FLUSH BAG 500ml IV PRN (06:35)
[2017-08-23] MEDS: FAMOTIDINE PB 20 MG/50 ML BAG IV SCH (06:36)
[2017-08-23] MEDS: ENOXAPARIN 40 MG/0.4 ML INJECTION SQ SCH (08:29)
[2017-08-23] MEDS: IBUPROFEN 600 MG TABLET PO PRN ×2 (12:21→21:30)
[2017-08-23] MEDS ORDERED: IBUPROFEN 800 MG TABLET PO PRN (13:04)
--- NOTE | 2017-08-23 13:09 | General Surgery Progress Note ---
Subjective Patient reports: feels better, pain is less, tolerating liquids well (fulls), voiding w/o difficulty, flatus, bowel movement (x2), afebrile Narrative: Ambulating the halls. Pain sems to be best controlled by Ibuprofen - Vital Signs Last Vital Signs Temp 98.2 F 08/23/17 07:23 Pulse 80 08/23/17 07:23 Resp 16 08/23/17 12:00 BP 124/58 08/23/17 07:23 Pulse Ox 96 08/23/17 07:23 - Laboratory Result Diagrams: 08/23/17 04:05 08/23/17 04:05 - Normal Exam General: awake, alert, oriented Abdominal: BS normo active x4, soft, appropriately tender, incision(s) (errol in tact, to erythema, early ecchymosis at trocar sites, some blood on dressing in umbilical area, new dry gauze and bandaids applied) Assessment and Plan (1) S/P right colectomy Current Visit: Yes Status: Acute (2) Tubulovillous adenoma of colon Current Visit: Yes Status: Acute Plan: Doing well, Advance to regulat diet, DC Tele and IVF. Consider discharge tomorrow. Hospital Course Summary Disclaimer: The visit summary below is not to be considered part of the above Progress Note.
[2017-08-23 16:19] VITALS: RESP 18
[2017-08-23] MEDS ORDERED: SALINE FLUSH 10ml SYRINGE IV PRN (21:33)
--- NOTE | 2017-08-24 07:12 | Progress Note ---
DATE: 08/23/2017 FINDINGS Mr. Hollingsworth was seen earlier today on rounds. He was in good spirits. He has had a bowel movement. Denies significant abdominal pain. VITALS: Afebrile. Normotensive. Please refer to EMR. ABDOMEN: Soft with only minimal incisional tenderness present. ASSESSMENT Status post open right hemicolectomy. Final pathology fortunately returned as large sessile benign tubulovillous adenoma with associated high-grade dysplasia. No evidence for malignancy present. Patient doing well. PLAN Advance to regular diet. Will likely DC to home tomorrow. Pleased with patient 's progress. [facility]
[2017-08-24 07:49] VITALS: BP 121/58; PULSE 83; TEMP 98; O2SAT 96
--- NOTE | 2017-08-24 08:14 | General Surgery Progress Note ---
Subjective Patient reports: no new complaints, feels better, pain is less (using only Motrin, last dose was last evening.), tolerating a regular diet, voiding w/o difficulty, bowel movement (soft formed), afebrile - Vital Signs Last Vital Signs Temp 98.0 F 08/24/17 07:47 Pulse 83 08/24/17 07:47 Resp 18 08/24/17 07:47 BP 121/58 08/24/17 07:47 Pulse Ox 96 08/24/17 07:47 - Laboratory Result Diagrams: 08/24/17 04:24 08/24/17 04:24 - Pathology Sigmoid colon : large sessile tubulovillous adenoma with high grade dysplasia, no sign of malignaney - Normal Exam General: awake, alert, oriented, no acute distress Cardiovascular: regular rhythm, regular rate Respiratory: clear bilaterally, equal bilaterally, no labored breathing Abdominal: BS normo active x4, soft, appropriately tender (midline), incision(s ) (CDI errol present, no oozing, erythema, eccnhymosis) Psychiatric: normal affect Assessment and Plan (1) S/P right colectomy Current Visit: Yes Status: Acute (2) Tubulovillous adenoma of colon Current Visit: Yes Status: Acute Plan: Pathology shows tubulovillous adenoma with high grade dysplasia, no sign of malignancy. He is eating regular diet, voiding and ambulating without difficulty. Has had several BMs and is eager to get home. We discussed discharge activity, plan on staple removal 2 weeks post op. Labs stable. DC to home today. Hospital Course Summary Disclaimer: The visit summary below is not to be considered part of the above Progress Note. Hospital Course: 08/21/2017 08/21/2017 POD #1 Open right hemicolectomy. Alert, oriented. pain controlled with DEVELOPER PROGRAMMER ANALYST and Dilaudid for breakthrough. No flatus or BM yet. Urine output is very good and has cleared to clear yellow, bloody initially due to stents. Labs good, see results. 08/22/2017 73-year-old gentleman status post right hemicolectomy secondary to large tubulovillous adenoma involving ascending colon unable to be removed in its entirety endoscopically. Patient doing well. PLAN Transfer to surgical floor. DC Davis. Advance to full liquids. Continue to follow closely. 08/23/2017 Doing well, Advance to regular diet, DC Tele and IVF. Consider discharge tomorrow. 08/24/2017 Pathology shows tubulovillous adenoma with high grade dysplasia, no sign of malignancy. He is eating regular diet, voiding and ambulating without difficulty. Has had several BMs and is eager to get home. We discussed discharge activity, plan on staple removal 2 weeks post op. Labs stable. DC to home today
--- NOTE | 2017-08-24 08:26 | Discharge Summary ---
Discharge Information Date of admission: 08/20/17 10:33 Anticipated date of discharge: 08/24/17 Attending Physician: Christian Thompson MD Primary care physician: Shahriar Zhang MD Consults: 08/20/17 10:37 Consult to Anesthesiology [CONS] Routine Reason For Exam: anesthesia - Discharge Diagnosis (1) S/P right colectomy Status: Acute (2) Tubulovillous adenoma of colon Status: Acute - Procedures Procedures: DATE OF SERVICE 08/20/2017 SURGEON Christian Thompson MD [employer] Francisco Hsu APRN PREOPERATIVE DIAGNOSIS Large tubulovillous adenoma involving ascending colon, unable to remove in its entirety endoscopically. POSTOPERATIVE DIAGNOSIS Large tubulovillous adenoma involving ascending colon, unable to remove in its entirety endoscopically. PROCEDURE Attempted robotic assisted laparoscopic right hemicolectomy with conversion to open right hemicolectomy. - Laboratory Labs: 08/24/17 04:24 08/24/17 04:24 - Pathology Sigmoid colon: Sessile tubulovillous adenoma with high grade dysplasia, no sign of malignancy - History of Present Illness HPI: BRIEF HISTORY/INDICATIONS Mr. Hollingsworth is a 72-year-old gentleman who recently underwent a colonoscopy and was found to have a fairly large sessile mass/polyp involving the mid ascending colon region. This polyp was perhaps 3-4 cm in diameter and involved the majority of the circumference of the colon. Polyp was not amenable to endoscopic removal and it was therefore biopsied. Biopsy did return revealing tubulovillous adenoma with associated dysplasia. As a result of the above indications, it was recommended that he undergo surgical resection of this larger adenomatous colonic polyp. Hospital Course This is a general summary of the patient's hospital course. For more details refer to the complete medical record. Hospital course: 08/21/2017 08/21/2017 POD #1 Open right hemicolectomy. Alert, oriented. pain controlled with [employer] and Dilaudid for breakthrough. No flatus or BM yet. Urine output is very good and has cleared to clear yellow, bloody initially due to stents. Labs good, see results. 08/22/2017 73-year-old gentleman status post right hemicolectomy secondary to large tubulovillous adenoma involving ascending colon unable to be removed in its entirety endoscopically. Patient doing well. PLAN Transfer to surgical floor. DC [place]. Advance to full liquids. Continue to follow closely. 08/23/2017 Doing well, Advance to regular diet, DC Tele and IVF. Consider discharge tomorrow. 08/24/2017 Pathology shows tubulovillous adenoma with high grade dysplasia, no sign of malignancy. He is eating regular diet, voiding and ambulating without difficulty. Has had several BMs and is eager to get home. We discussed discharge activity, plan on staple removal 2 weeks post op. Labs stable. DC to home today Time spent with patient: 25 - 35 minutes Discharge Plan - Med Rec/Dispo Referrals/Follow Up: Karli Hsu APRN [Advanced Practice Nurse] - 09/03/17 2:00 pm (staple removal) Prescriptions: New PEG 3350 17gm PACKET [Miralax] 17 gm PO DAILY PRN #10 packet PRN Reason: Constipation Oxycodone/Acetaminophen 5/325 [Percocet 5/325] 1 - 2 tab PO Q5H PRN #20 tab PRN Reason: Pain Continue Ibuprofen [Motrin] 600 mg PO Q6H PRN #60 tab PRN Reason: Pain Aspirin [Aspirin EC] 81 mg PO DAILY Multivitamin [Multivitamins] 1 tab PO DAILY Famotidine [Pepcid] 1 tab PO BID Simvastatin [Zocor] 10 mg PO HS Neomycin Sulfate 1,000 mg PO TID erythromycin 250 mg capsule,delayed release See Label Instructions PO TID # 12 cap - Disposition 01 Discharged Home, Self-Care - Dismissal Complete Discharge Instructions are:: Complete
[2017-08-24] MEDS: ENOXAPARIN 40 MG/0.4 ML INJECTION SQ SCH (08:59)
== END 2017-08-24 10:40 | disposition home or self-care (01) | DRG 331 ==
LOC: NMC.PERIOP 10:33 → CCU 19:28 → SRG 08-22 10:26
PROVIDERS: ADMIT Surgery; ATTEND Surgery